=== PATIENT | male | born 1995 | race African-American/Black ===

== ENCOUNTER 2022-05-18 15:08 | Emergency (ER) | payer OTHER ==
[~2022-05-18] VITALS: Ht 172.7 cm; Wt 79.5 kg
[2022-05-18 15:22] VITALS: TEMP 98
[2022-05-18 16:32] LABS: COLLECTION METHOD CLEAN CATCH
[2022-05-18 16:38] LABS: HEMATOCRIT 43.3 % (42.0-52.0); HEMOGLOBIN 13.5 g/dl (13.5-18.0); MEAN CELL VOLUME 70 fl (80.0-100.0); MEAN CORPUSCULAR HEMOGLOBIN 22 pg (27-31); MEAN CORPUSCULAR HGB CONC 31 g/dl (33.0-37.0); MEAN PLATELET VOLUME 11.1 fl (7.4-10.4); PLATELET COUNT 269 K/mm3 (130-400); RED BLOOD COUNT 6.19 M/mm3 (4.20-5.60); REDCELL DISTRIBUTION WIDTH-CV 16.9 % (11.5-14.5)
[2022-05-18 16:41] LABS: MUCOUS Present (NOT PRESENT); PH 5 (5-8); SQUAMOUS EPITHELIAL None Seen /hpf (0-10); URINE APPEARANCE Clear (CLEAR/HAZY); URINE BACTERIA None Seen /hpf (NONE SEEN); URINE BILIRUBIN Negative (NEGATIVE); URINE BLOOD 1+ (NEGATIVE); URINE COLOR Yellow (YELLOW); URINE GLUCOSE Negative (NEGATIVE); URINE KETONE Negative (NEGATIVE); URINE LEUKOCYTE ESTERASE Negative (NEGATIVE); URINE NITRATE Negative (NEGATIVE); URINE PROTEIN(semi-quant) 1+ (NEGATIVE); URINE RBC 0-2 /hpf (0-2); URINE UROBILINOGEN >=4.0 (NEGATIVE)
[2022-05-18 17:01] LABS: ALBUMIN 3.3 gm/dL (3.5-5.0); BILIRUBIN,TOTAL 0.4 mg/dL (0.2-1.2); C-REACTIVE PROTEIN 2.74 mg/dL (0.00-0.50); CALCIUM 8.8 mg/dL (8.4-10.2); CREATININE, serum 1.08 mg/dL (0.72-1.25); POTASSIUM 3.6 mmol/L (3.5-4.5); TOTAL PROTEIN 7.7 gm/dL (6.2-8.1)
[2022-05-18 17:24] LABS: BASOPHIL 1 % (0-2); EOSINOPHIL 4 % (0-4); LYMPHOCYTE 36 % (20.0-51.0); NEUTROPHILS 50 % (42.0-75.2); PLATELET ESTIMATE NORMAL (NORMAL)
[2022-05-18 17:26] LABS: ANISOCYTOSIS 1+; HYPOCHROMIA 2+
[2022-05-18 17:38] VITALS: BP 116/65
[2022-05-18] MEDS ORDERED: PROTONIX 40MG T40 MG PO (17:46)
[2022-05-18] MEDS ORDERED: CARAFATE 1GM1 G PO (17:46)
[2022-05-18 17:55] VITALS: PULSE 65
== END 2022-05-18 17:55 | disposition home or self-care (01) ==
LOC: COL.ER 15:08
PROVIDERS: Nurse Practitioner
DX: R10.13 Epigastric pain (principal); Z28.311 Partially vaccinated for COVID-19
CPT/HCPCS: C9113; J1885; J2405; J7030

== ENCOUNTER 2023-08-10 10:18 | Emergency (ER) | payer OTHER ==
[~2023-08-10] VITALS: Ht 172.7 cm; Wt 78.2 kg
[~2023-08-10 10:18] MED LIST: CARAFATE 1GM1 G PO; DOXYCYCLINE 10100 MG PO; IBU800 M1 PO; LIDODERM 5% PATC1 EA TP; PROTONIX 40MG T40 MG PO; TYLENOL 500MG500 MG PO
[2023-08-10 10:24] VITALS: TEMP 97.9
[2023-08-10] MEDS ORDERED: MOBIC 7.5MG7.5 MG PO (11:58)
[2023-08-10 12:05] VITALS: BP 114/65; PULSE 67
== END 2023-08-10 12:23 | disposition home or self-care (01) ==
LOC: COL.ER 10:18
DX: S93.601A Unspecified sprain of right foot, initial encounter (principal); Z28.311 Partially vaccinated for COVID-19; X58.XXXA Exposure to other specified factors, initial encounter; Y93.02 Activity, running